=== PATIENT | female | born 1970 | race Hispanic/Latino ===

== ENCOUNTER 2023-02-14 05:42 | Day surgery (SDC) | payer OTHER ==
[2023-02-12 14:43] LABS: BASOPHILS # (AUTO) 0.02 K/uL (0.00-0.20); BASOPHILS % (AUTO) 0.3 % (0.0-5.0); EOSINOPHILS # (AUTO) 0.05 K/uL (0.00-0.70); EOSINOPHILS % (AUTO) 0.7 % (0.0-8.0); HEMATOCRIT 40.1 % (36-48); IMMATURE GRANULOCYTE ABSOLUTE 0.01 K/uL (0-1); LYMPHOCYTES % (AUTO) 28.2 % (21.0-51.0); MEAN CORPUSCULAR HEMOGLOBIN 29.7 pg (27.0-33.0); MEAN CORPUSCULAR HGB CONC 33.7 g/dL (32.0-36.0); MEAN CORPUSCULAR VOLUME 88.3 fL (79-99); MONOCYTES # (AUTO) 0.5 K/uL (0.1-1.0); MONOCYTES % (AUTO) 6.3 % (3.0-13.0); NEUTROPHILS # (AUTO) 4.6 K/uL (1.8-7.7); NEUTROPHILS % (AUTO) 64.4 % (40.0-77.0); PLATELET COUNT (AUTO) 280 K/uL (130-400); RED BLOOD CELL COUNT(AUTO) 4.54 MIL/uL (4.00-5.50); RED CELL DISTRIBUTION WIDTH 12.2 % (11.0-15.5); WHITE BLOOD COUNT (AUTO) 7.2 K/uL (4.8-10.8)
[2023-02-12 14:58] LABS: ALBUMIN 3.8 g/dL (3.5-5.0); CREATININE 0.7 mg/dL (0.5-1.5); CRP QUANTITATIVE 7.8 mg/L (0.00-9.0); POTASSIUM 3.4 mmol/L (3.5-5.1)
[2023-02-12 18:22] VITALS: BP 146/75; PULSE 76; RESP 16
[2023-02-14] VITALS (20 sets, daily range): BP systolic 104–165; BP diastolic 55–83; PULSE 51–69; RESP 15–18
[~2023-02-14] VITALS: Ht 157.5 cm; Wt 63.0 kg
[2023-02-14] MEDS ORDERED: LACTATED RINGERS 1000ML 1,000 ML IV ONE (06:18)
[2023-02-14] MEDS ORDERED: CEFAZOLIN SODIUM 2 GM VIAL ONE (06:18)
[2023-02-14] MEDS ORDERED: FAMOTIDINE 20MG VIAL IV ONE (06:46)
[2023-02-14] MEDS ORDERED: BUPIVACAINE/PF 0.25% 30ML VIAL IJ ONE ×2 (06:50→07:41)
[2023-02-14] MEDS ORDERED: PROPOFOL 10 MG/ML 20ML VIAL IV ONE (06:56)
[2023-02-14] MEDS ORDERED: MIDAZOLAM HCL 1 MG/ML 2ML VIAL ONE (06:56)
[2023-02-14] MEDS ORDERED: LIDOCAINE PF 100MG/5ML (2%) SYRINGE 5ML ONE (06:56)
[2023-02-14] MEDS ORDERED: GLYCOPYRROLATE 1 MG/5 ML SYRINGE ONE (06:56)
[2023-02-14] MEDS ORDERED: FENTANYL CITRATE PF 50 MCG/1 ML 2ML VIAL ONE (06:57)
[2023-02-14] MEDS ORDERED: PHENYLEPHRINE HCL 10 MG/ML 1ML VIAL IV ONE (07:38)
[2023-02-14] MEDS ORDERED: ONDANSETRON 4MG INJ ONE (07:46)
[2023-02-14] MEDS ORDERED: ACET-2079 PO (08:13)
== END 2023-02-14 10:10 | disposition home or self-care (01) ==
LOC: DAH 05:42
PROVIDERS: ATTEND Student in an Organized Health Care Education/Training Program
DX: G56.03 Carpal tunnel syndrome, bilateral upper limbs (principal); Z20.822 Contact with and (suspected) exposure to COVID-19; K21.9 Gastro-esophageal reflux disease without esophagitis; Z82.49 Family history of ischemic heart disease and other diseases of the circulatory system; Z83.3 Family history of diabetes mellitus; Z98.890 Other specified postprocedural states; Z90.49 Acquired absence of other specified parts of digestive tract; Z90.710 Acquired absence of both cervix and uterus; Z98.891 History of uterine scar from previous surgery
CPT/HCPCS: 82040; 80048; 85025; 84134; 86140; 87426; 36415; 64721; A4663; J7030; J7120; J3490 ×4; J3010; J2001; J2250; J2704; J2405; J2371; J0690; A6223; A4215; A4223; A4222; A4221

== ENCOUNTER 2023-12-31 05:52 | Observation (INO) | payer OTHER ==
[2023-12-29 14:06] LABS: BASOPHILS # (AUTO) 0.03 K/uL (0.00-0.20); BASOPHILS % (AUTO) 0.4 % (0.0-5.0); EOSINOPHILS # (AUTO) 0.08 K/uL (0.00-0.70); EOSINOPHILS % (AUTO) 1.1 % (0.0-8.0); HEMATOCRIT 42.2 % (36-48); IMMATURE GRANULOCYTE ABSOLUTE 0.01 K/uL (0-1); LYMPHOCYTES # (AUTO) 2.4 K/uL (1.0-4.8); LYMPHOCYTES % (AUTO) 33.3 % (21.0-51.0); MEAN CORPUSCULAR HGB CONC 33.6 g/dL (32.0-36.0); MEAN CORPUSCULAR VOLUME 92.1 fL (79-99); MONOCYTES # (AUTO) 0.5 K/uL (0.1-1.0); MONOCYTES % (AUTO) 6.3 % (3.0-13.0); NEUTROPHILS # (AUTO) 4.3 K/uL (1.8-7.7); NEUTROPHILS % (AUTO) 58.8 % (40.0-77.0); PLATELET COUNT (AUTO) 271 K/uL (130-400); RED BLOOD CELL COUNT(AUTO) 4.58 MIL/uL (4.00-5.50); RED CELL DISTRIBUTION WIDTH 12.2 % (11.0-15.5); WHITE BLOOD COUNT (AUTO) 7.3 K/uL (4.8-10.8)
[2023-12-29 14:12] LABS: APPEARANCE,URINE CLEAR (CLEAR); BILIRUBIN,URINE NEGATIVE (NEGATIVE); COLOR,URINE LIGHT-YELLOW (YELLOW); GLUCOSE, URINE (UA) NEGATIVE (NEGATIVE); KETONES,URINE NEGATIVE (NEGATIVE); LEUKOCYTE ESTERASE ,URINE NEGATIVE Leu/uL (NEGATIVE); NITRATE,URINE NEGATIVE (NEGATIVE); OCCULT BLOOD,URINE SMALL (NEGATIVE); PH,URINE 5.5 (5.0-8.0); PROTEIN,URINE NEGATIVE (NEGATIVE); UROBILINOGEN,URINE 0.2 mg/dL (0.2-1.0)
[2023-12-29 14:20] LABS: INR <= 0.93 (0.85-1.15); PROTHROMBIN TIME 10.7 SEC (9.6-11.6)
[2023-12-29 14:21] LABS: PARTIAL THROMBOPLASTIN TIME 29.1 SEC (26.3-35.5)
[2023-12-29 14:23] LABS: ALBUMIN 3.9 g/dL (3.5-5.0); CREATININE 0.7 mg/dL (0.5-1.0); POTASSIUM 3.8 mmol/L (3.5-5.1)
[2023-12-29 14:28] LABS: ADD UA MICROSCOPIC YES
[2023-12-29 14:29] VITALS: BP 168/72; PULSE 57; RESP 18
[2023-12-29 14:33] LABS: MUCUS,URINE RARE LPF (None Seen); RBC,URINE 0-1 /HPF (0-1); SQUAMOUS EPITHELIAL CELL,UR RARE /HPF (0-2); WBC,URINE 0-1 /HPF (0-1)
[~2023-12-31] VITALS: Ht 154.9 cm; Wt 61.2 kg
[2023-12-31] VITALS (26 sets, daily range): BP systolic 101–156; BP diastolic 60–79; PULSE 57–81; RESP 13–18
[~2023-12-31 05:52] MED LIST: ACET-2079 PO
[2023-12-31] MEDS ORDERED: KETAMINE 50MG/ML SYRINGE 50 MG/ML DISP.SYRIN ONE (06:34)
[2023-12-31] MEDS ORDERED: ROPIVACAINE 0.5% 5MG/ML 30ML ONE (06:41)
[2023-12-31] MEDS ORDERED: ROCURONIUM BROMIDE 10MG/1ML 5ML VL ONE (06:43)
[2023-12-31] MEDS ORDERED: LIDOCAINE PF 100MG/5ML (2%) SYRINGE 5ML ONE (06:43)
[2023-12-31] MEDS ORDERED: FENTANYL CITRATE PF 50 MCG/1 ML 2ML VIAL ONE (06:43)
[2023-12-31] MEDS ORDERED: PROPOFOL 10 MG/ML 20ML VIAL IV ONE (06:43)
[2023-12-31] MEDS ORDERED: ONDANSETRON 4MG INJ ONE (07:12)
[2023-12-31] MEDS: CEFAZOLIN SODIUM 2 GM VIAL ONE (07:12)
[2023-12-31] MEDS ORDERED: DEXAMETHASONE SOD PHOSPHATE 10MG/ML 1ML VIAL ONE (07:12)
[2023-12-31] MEDS: LACTATED RINGERS 1000ML 1,000 ML IV ONE (07:12)
[2023-12-31] MEDS: TRANEXAMIC ACID 1000MG/10ML ONE (07:21)
[2023-12-31] MEDS: KETOROLAC 30MG VIAL (30MG/ML) ONE (07:46)
[2023-12-31] MEDS: ROPIVACAINE 0.5% 5MG/ML 30ML ONE (07:47)
[2023-12-31] MEDS: TRANEXAMIC ACID 1000MG/10ML IV ONE (08:22)
[2023-12-31] MEDS ORDERED: NEOSTIGMINE METHYLSULFATE 1MG/ML IV ONE (08:23)
[2023-12-31] MEDS ORDERED: GLYCOPYRROLATE 0.2 MG/ML 5 ML VIAL ONE (08:23)
[2023-12-31] MEDS ORDERED: ONDANSETRON 4MG INJ IVP PRN (09:00)
[2023-12-31] MEDS ORDERED: CYCLOBENZAPRINE HCL 10 MG TABLET PO PRN (09:00)
[2023-12-31] MEDS: GABAPENTIN 100 MG CAPSULE PO SCH (09:00)
[2023-12-31] MEDS ORDERED: POTASSIUM CHLORIDE 10% ELIXIR 20 MEQ/15 ML UDCUP PO PRN (09:00)
[2023-12-31] MEDS ORDERED: DiphenhydrAMINE HCL 50 MG/ML VIAL IVP PRN (09:00)
[2023-12-31] MEDS ORDERED: KETOROLAC 15MG/ML VIAL (15MG/ML) IV PRN (09:00)
[2023-12-31] MEDS ORDERED: KCL 20 MEQ ERTAB PO PRN (09:00)
[2023-12-31] MEDS: DOCUSATE SODIUM 100 MG CAP PO SCH (09:00)
[2023-12-31] MEDS: POLYETHYLENE GLYCOL 3350 17 GM POWD.PACK PO SCH (09:00)
[2023-12-31] MEDS ORDERED: FERROUS FUMARATE 324 MG TABLET PO PRN (09:00)
[2023-12-31] MEDS ORDERED: CALCIUM CARB 500MG PO PRN (09:00)
[2023-12-31] MEDS ORDERED: POTASSIUM CHLORIDE 20MEQ/100ML 100 ML IV PRN (09:00)
[2023-12-31] MEDS ORDERED: TRAMADOL HCL 50 MG TABLET PO PRN (09:00)
[2023-12-31] MEDS: KETOROLAC 15MG/ML VIAL (15MG/ML) IV SCH (09:15)
[2023-12-31] MEDS: KETOROLAC 15MG/ML VIAL (15MG/ML) ONE (09:15)
[2023-12-31] MEDS: ACETAMINOPHEN 1,000 MG/100 ML VIAL IV ONE (10:44)
[2023-12-31] MEDS: FAMOTIDINE 20MG VIAL IV ONE (10:45)
[2023-12-31] MEDS: 0.9%NACL 1000ML 1,000 ML IV SCH (10:50)
[2023-12-31] MEDS: CEFAZOLIN SODIUM 2 GM VIAL IVPB SCH (15:39)
[2024-01-01] VITALS: BP 121/69; PULSE 71; RESP 18
[2024-01-01 04:00] VITALS: BP 132/63; PULSE 80; RESP 18
[2024-01-01 04:12] LABS: HEMATOCRIT 33.2 % (36-48); MEAN CORPUSCULAR HEMOGLOBIN 30.3 pg (27.0-33.0); MEAN CORPUSCULAR HGB CONC 33.4 g/dL (32.0-36.0); MEAN CORPUSCULAR VOLUME 90.7 fL (79-99); RED BLOOD CELL COUNT(AUTO) 3.66 MIL/uL (4.00-5.50); RED CELL DISTRIBUTION WIDTH 12.2 % (11.0-15.5)
[2024-01-01] MEDS: HYDROCODONE/ACETAMINOPHEN 5/325 MG TAB PO PRN (04:17)
[2024-01-01 04:22] LABS: CREATININE 0.9 mg/dL (0.5-1.0); POTASSIUM 3.7 mmol/L (3.5-5.1)
[2024-01-01 08:00] VITALS: BP 142/67; PULSE 85; RESP 16; O2SAT 98
[2024-01-01] MEDS: ASPIRIN 325MG EC TAB PO SCH (08:33)
[2024-01-01] MEDS ORDERED: KETOROLAC 15MG/ML VIAL (15MG/ML) IV PRN (09:30)
[2024-01-01 12:00] VITALS: BP 143/74; PULSE 73; RESP 16
[2024-01-01 16:00] VITALS: BP 146/70; PULSE 83; RESP 16
[2024-01-01] MEDS ORDERED: HYDR-4060 PO (16:44)
[2024-01-01] MEDS ORDERED: ASPI-891 PO (16:44)
[2024-01-01] MEDS ORDERED: CYCL-309 PO (16:44)
[2024-01-01] MEDS ORDERED: DOCU-116 PO (16:44)
[2024-01-03] MEDS ORDERED: BISACODYL 10 MG SUPP.RECT RC PRN (09:00)
== END 2024-01-01 19:00 | disposition home or self-care (01) ==
LOC: DAH 05:52 → DAHIP 05:53 → 4CH 10:00
PROVIDERS: ADMIT Student in an Organized Health Care Education/Training Program; ATTEND Student in an Organized Health Care Education/Training Program
DX: M17.11 Unilateral primary osteoarthritis, right knee (principal); D62 Acute posthemorrhagic anemia; F41.9 Anxiety disorder, unspecified; K21.9 Gastro-esophageal reflux disease without esophagitis; G56.00 Carpal tunnel syndrome, unspecified upper limb; Z90.710 Acquired absence of both cervix and uterus; Z79.899 Other long term (current) drug therapy; Z96.641 Presence of right artificial hip joint
CPT/HCPCS: 82040; 80048 ×2; 85025; 85610; 85730; 87088; 84134; 86140; 81001; 36415 ×2; 87641; 64447; 27447; 96365; 96366; 96375; 73560; 97161; 97116 ×3; 85027; 97530 ×2; G0378 ×31; A4663; A4215 ×2; J7120; J3490 ×6; J3010; J1100; J2001; J2704; J2405; J1885 ×4; J2710; J2795 ×2; J0690 ×3; G0168; A4649 ×2; A4930; C1713; C1776; A6255; A4223; A4213; A4222; A4221

== ENCOUNTER 2024-06-14 06:17 | Day surgery (SDC) | payer OTHER ==
[~2024-06-14] VITALS: Ht 165.1 cm; Wt 62.6 kg
[2024-06-14] VITALS (10 sets, daily range): BP systolic 112–137; BP diastolic 60–81; PULSE 61–73; RESP 14–20; TEMP 97–97.6
[2024-06-14] MEDS: 0.9%NACL 1000ML 1,000 ML IV ONE (07:07)
[2024-06-14] MEDS ORDERED: proPOFol 10 MG/ML 20ML VIAL IV ONE ×2 (07:49→08:01)
== END 2024-06-14 09:25 | disposition home or self-care (01) ==
LOC: DAH 06:17 → ENDO 06:17
PROVIDERS: ATTEND Internal Medicine Gastroenterology
DX: R14.0 Abdominal distension (gaseous) (principal); K21.9 Gastro-esophageal reflux disease without esophagitis; K31.7 Polyp of stomach and duodenum; K63.3 Ulcer of intestine; K29.50 Unspecified chronic gastritis without bleeding; K44.9 Diaphragmatic hernia without obstruction or gangrene; K31.89 Other diseases of stomach and duodenum; K59.89 Other specified functional intestinal disorders; M19.90 Unspecified osteoarthritis, unspecified site; Z90.49 Acquired absence of other specified parts of digestive tract; Z96.659 Presence of unspecified artificial knee joint; Z90.710 Acquired absence of both cervix and uterus; Z79.899 Other long term (current) drug therapy
CPT/HCPCS: 43251; 43239; 45380; J7030; J2704 ×2; A4620; A4215; J3490